=== PATIENT | male | born 1950 | race Caucasian/White ===

== ENCOUNTER 2018-05-29 08:44 | Inpatient (IN) | payer MEDICARE, OTHER ==
--- NOTE | 2018-05-29 09:30 | EDM.PDOC ---
ED HPI GENERAL MEDICAL PROBLEM - General Chief Complaint: General Stated Complaint: WEAK Time Seen by Provider: 05/29/18 09:10 Source of Information: Reports: Patient, EMS History Limitations: Reports: No Limitations - History of Present Illness INITIAL COMMENTS - FREE TEXT/NARRATIVE: 60-year-old male brought in by ambulance because of significant worsening weakness. He started physical therapy last week and after 2 sessions became much worse. He has had back surgery which relieved back pain, but since he has intermittent left-sided hip and knee pain. Weakness has not been an issue until the last 7 days. Twice he has fallen at home, he is unable to get up and has to call for help including the neighbors just to get up. His appetite has been down but he denies any fevers, chills, chest pain, abdominal pain, diarrhea, dark stools or medication changes. He is not falling because of dizziness or being lightheaded, he is falling because his leg is giving out. He is also concerned that over the past week he has developed lower extremity edema, particularly the left leg which he has not had in the past. According to EMS they are working him up for "possible MS". Onset: Gradual Duration: Day(s): (Much worse over the last 7 days) Location: Reports: Generalized Severity: Moderate Worsens with: Reports: Other (Recent physical therapy seems to have made his weakness worse) Associated Symptoms: Reports: Loss of Appetite, Malaise, Weakness. Denies: Confusion, Chest Pain, Cough, Fever/Chills, Nausea/Vomiting, Shortness of Breath Left Middle Chest Pain Score (Numeric/FACES): 4 - Related Data Allergies Allergy/AdvReac Type Severity Reaction Status Date / Time Penicillins Allergy unsure Verified 04/14/16 10:39 Home Meds: Home Meds Doxazosin [Cardura] 8 mg PO DAILY 09/19/14 [History] Triamterene/Hydrochlorothiazid [Triamterene-HCTZ 37.5-25 MG] 25 - 37.5 mg PO DAILY 09/19/14 [History] amLODIPine Besylate/Benazepril [Amlodipine-Benazepril 10-20 MG] 10 - 20 mg PO DAILY 09/19/14 [History] Cyclobenzaprine [Flexeril] 10 mg PO TID PRN 10/02/14 [History] Ibuprofen 800 mg PO ASDIRECTED PRN 10/02/14 [History] Aspirin [Eric Chewable Aspirin] 81 mg PO DAILY 06/30/15 [History] Naproxen Sodium [Aleve] 220 mg PO BID PRN 04/14/16 [History] Diazepam [Valium] 5 mg PO ASDIRECTED PRN 05/29/18 [History] Metoprolol Succinate 100 mg PO DAILY 05/29/18 [History] Nortriptyline 25 mg PO DAILY 05/29/18 [History] Solifenacin Succinate [Vesicare] 10 mg PO DAILY 05/29/18 [History] Past Medical History Cardiovascular History: Reports: Hypertension Genitourinary History: Reports: BPH Neurological History: Reports: MS - Infectious Disease History Infectious Disease History: Reports: Chicken Pox, Measles, Mumps - Past Surgical History GI Surgical History: Reports: Hernia, Inguinal Male Surgical History: Reports: TURP-Transurethral Resection of Prostate Musculoskeletal Surgical History: Reports: Other (See Below) Other Musculoskeletal Surgeries/Procedures:: back surgery Social & Family History - Tobacco Use Smoking Status *Q: Never Smoker - Caffeine Use Caffeine Use: Reports: Coffee - Recreational Drug Use Recreational Drug Use: No ED ROS GENERAL - Review of Systems Review Of Systems: See Below Constitutional: Reports: Malaise, Weakness, Decreased Appetite, Other (Despite not complaining of shortness of breath, the patient arrived with an O2 saturation of 86% on room air which responded well to nasal cannula oxygen). Denies: Fever, Chills HEENT: Reports: No Symptoms Respiratory: Denies: Shortness of Breath, Cough Cardiovascular: Denies: Chest Pain, Palpitations Endocrine: Reports: Fatigue GI/Abdominal: Denies: Abdominal Pain, Nausea, Vomiting : Reports: No Symptoms Musculoskeletal: Reports: Other (Intermittent left hip and left knee pain) Skin: Denies: Cyanosis, Pallor, Bruising Neurological: Reports: Weakness. Denies: Dizziness, Headache Psychiatric: Reports: No Symptoms ED EXAM, GENERAL - Physical Exam Exam: See Below Exam Limited By: No Limitations General Appearance: Alert, No Apparent Distress, Other (When I went in to examine the patient O2 saturations were improved with nasal cannula, his color was good) Eye Exam: Bilateral Eye: EOMI Throat/Mouth: Normal Inspection Head: Atraumatic Neck: Normal Inspection, Supple Respiratory/Chest: No Respiratory Distress, Lungs Clear, Decreased Breath Sounds (Right base sounds are decreased compared to left) Cardiovascular: Regular Rate, Rhythm. No: Extra Beats GI/Abdominal: Normal Bowel Sounds, Soft, Non-Tender Back Exam: No: CVA Tenderness (R), CVA Tenderness (L) Extremities: Pedal Edema (Patient has lower extremity edema, trace in the right extremity and 1+ in the left) Neurological: Alert, Oriented, Other (He has no asymmetric weakness, however diffuse weakness as prominent as he is unable to maintain a sitting position) Psychiatric: Normal Affect, Normal Mood Skin Exam: Warm, Dry Course - Vital Signs Last Recorded V/S: Last Vital Signs Temp 100.1 F 05/29/18 20:44 Pulse 76 05/29/18 20:44 Resp 18 05/29/18 20:44 BP 146/74 H 05/29/18 20:44 Pulse Ox 91 L 05/29/18 20:44 - Orders/Labs/Meds Labs: Laboratory Tests 05/29/18 05/29/18 05/29/18 Range/Units 09:14 09:18 09:18 WBC 11.1 H (4.5-11.0) K/uL RBC 4.52 (4.30-5.90) M/uL Hgb 13.2 (12.0-15.0) g/dL Hct 39.3 L (40.0-54.0) % MCV 87 (80-98) fL MCH 29 (27-31) pg MCHC 34 (32-36) % Plt Count 207 (150-400) K/uL Neut % (Auto) 78 H (36-66) % Lymph % (Auto) 10 L (24-44) % [place] % (Auto) 10 H (2-6) % Eos % (Auto) 1 L (2-4) % Baso % (Auto) 0 (0-1) % ESR (0-20) mm/hr PT (9.5-12.0) sec INR (0.80-1.20) APTT (27.0-36.0) sec D-Dimer, Quantitative 2030 H (0.0-400.0) ng/mL Sodium 142 (140-148) mmol/L Potassium 2.7 L* (3.6-5.2) mmol/L Chloride 100 (100-108) mmol/L Carbon Dioxide 33 H (21-32) mmol/L Anion Gap 11.7 (5.0-14.0) mmol/L BUN 17 (7-18) mg/dL Creatinine 1.4 H (0.8-1.3) mg/dL Est Cr Clr Drug Dosing 52.14 mL/min Estimated GFR (MDRD) 50 L (>60) Glucose 118 H (74-106) mg/dL Calcium 8.1 L (8.5-10.1) mg/dL Total Bilirubin 1.1 H (0.2-1.0) mg/dL AST 13 L (15-37) U/L ALT 16 (12-78) U/L Alkaline Phosphatase 80 (46-116) U/L Troponin I < 0.017 (0.000-0.056) ng/mL C-Reactive Protein (0.0-0.3) mg/dL Total Protein 6.3 L (6.4-8.2) g/dL Albumin 3.0 L (3.4-5.0) g/dL Globulin 3.3 (2.3-3.5) g/dL Albumin/Globulin Ratio 0.9 L (1.2-2.2) TSH, Ultra Sensitive 1.990 (0.358-3.740) uIU/mL 05/29/18 05/29/18 05/29/18 Range/Units 09:19 09:19 09:19 WBC (4.5-11.0) K/uL RBC (4.30-5.90) M/uL Hgb (12.0-15.0) g/dL Hct (40.0-54.0) % MCV (80-98) fL MCH (27-31) pg MCHC (32-36) % Plt Count (150-400) K/uL Neut % (Auto) (36-66) % Lymph % (Auto) (24-44) % [place] % (Auto) (2-6) % Eos % (Auto) (2-4) % Baso % (Auto) (0-1) % ESR 20 (0-20) mm/hr PT (9.5-12.0) sec INR (0.80-1.20) APTT 34.1 (27.0-36.0) sec D-Dimer, Quantitative (0.0-400.0) ng/mL Sodium (140-148) mmol/L Potassium (3.6-5.2) mmol/L Chloride (100-108) mmol/L Carbon Dioxide (21-32) mmol/L Anion Gap (5.0-14.0) mmol/L BUN (7-18) mg/dL Creatinine (0.8-1.3) mg/dL Est Cr Clr Drug Dosing mL/min Estimated GFR (MDRD) (>60) Glucose (74-106) mg/dL Calcium (8.5-10.1) mg/dL Total Bilirubin (0.2-1.0) mg/dL AST (15-37) U/L ALT (12-78) U/L Alkaline Phosphatase (46-116) U/L Troponin I (0.000-0.056) ng/mL C-Reactive Protein 13.78 H (0.0-0.3) mg/dL Total Protein (6.4-8.2) g/dL Albumin (3.4-5.0) g/dL Globulin (2.3-3.5) g/dL Albumin/Globulin Ratio (1.2-2.2) TSH, Ultra Sensitive (0.358-3.740) uIU/mL 05/29/18 Range/Units 09:19 WBC (4.5-11.0) K/uL RBC (4.30-5.90) M/uL Hgb (12.0-15.0) g/dL Hct (40.0-54.0) % MCV (80-98) fL MCH (27-31) pg MCHC (32-36) % Plt Count (150-400) K/uL Neut % (Auto) (36-66) % Lymph % (Auto) (24-44) % [place] % (Auto) (2-6) % Eos % (Auto) (2-4) % Baso % (Auto) (0-1) % ESR (0-20) mm/hr PT 11.0 (9.5-12.0) sec INR 1.00 (0.80-1.20) APTT (27.0-36.0) sec D-Dimer, Quantitative (0.0-400.0) ng/mL Sodium (140-148) mmol/L Potassium (3.6-5.2) mmol/L Chloride (100-108) mmol/L Carbon Dioxide (21-32) mmol/L Anion Gap (5.0-14.0) mmol/L BUN (7-18) mg/dL Creatinine (0.8-1.3) mg/dL Est Cr Clr Drug Dosing mL/min Estimated GFR (MDRD) (>60) Glucose (74-106) mg/dL Calcium (8.5-10.1) mg/dL Total Bilirubin (0.2-1.0) mg/dL AST (15-37) U/L ALT (12-78) U/L Alkaline Phosphatase (46-116) U/L Troponin I (0.000-0.056) ng/mL C-Reactive Protein (0.0-0.3) mg/dL Total Protein (6.4-8.2) g/dL Albumin (3.4-5.0) g/dL Globulin (2.3-3.5) g/dL Albumin/Globulin Ratio (1.2-2.2) TSH, Ultra Sensitive (0.358-3.740) uIU/mL Meds: Medications Discontinued Medications Generic Name Dose Route Start Last Admin Trade Name Freq PRN Reason Stop Dose Admin Acetaminophen 650 mg 05/29/18 17:25 Tylenol PO Q4H PRN Pain (Mild 1-3)/fever Amlodipine Besylate 10 mg 05/30/18 09:00 Norvasc PO DAILY [facility] Aspirin 81 mg 05/30/18 09:00 Halfprin PO DAILY [facility] Benazepril HCl 20 mg 05/30/18 09:00 Lotensin PO DAILY [facility] Doxazosin Mesylate 8 mg 05/30/18 09:00 Cardura PO DAILY [facility] Enoxaparin Sodium 40 mg 05/29/18 17:25 05/29/18 18:14 Lovenox SUBCUT 40 mg DAILY [facility] Administration Heparin Sodium (Porcine) Confirm 05/29/18 20:33 05/29/18 20:36 Heparin Sodium Administered 05/29/18 20:34 5,000 units Dose Administration 5,000 units .ROUTE .STK-MED ONE Heparin Sodium (Porcine) 5,000 units 05/29/18 21:07 05/29/18 22:02 Heparin Sodium IVPUSH 05/29/18 21:08 Not Given .BOLUS ONE Potassium Chloride 20 meq/ 112 mls @ 56 mls/hr 05/29/18 11:30 05/29/18 11:54 Lidocaine HCl 2 ml/ Sodium IV 05/29/18 13:29 56 mls/hr Chloride ONETIME ONE Administration Potassium Chloride 40 meq/ 100 mls @ 25 mls/hr 05/29/18 17:25 05/29/18 18:16 Premix IV 05/29/18 21:24 Not Given ONETIME ONE Sodium Chloride 1,000 mls @ 125 mls/hr 05/29/18 17:25 Normal Saline IV ASDIRECTED SHILO Sodium Chloride 100 mls @ 4 mls/sec 05/29/18 18:00 05/29/18 19:56 Normal Saline IV 4 mls/sec ASDIRECTED SHILO Administration 20/ Premix 0 mls @ 50 mls/hr 05/29/18 18:01 05/29/18 22:02 IV 05/29/18 20:02 Not Given Q2H SHILO Potassium Chloride Confirm 05/29/18 18:21 05/29/18 19:10 Kcl 20 Meq In Water 100 Ml Administered 05/29/18 18:22 50 mls/hr Dose Administration 100 mls @ as directed .ROUTE .STK-MED ONE Heparin Sodium/Dextrose 25,000 units in 500 mls @ 26 mls/hr 05/29/18 19:30 20:39 Heparin 25,000 Units In D5w 500 Ml IV 26 mls/hr TITRATE SHILO 26 mls/hr Administration Protocol Potassium Chloride Confirm 05/29/18 21:35 05/29/18 21:39 Kcl 20 Meq In Water 100 Ml Administered 05/29/18 21:36 50 mls/hr Dose Administration 100 mls @ as directed .ROUTE .STK-MED ONE Iopamidol 100 ml 05/29/18 18:00 Isovue-370 (76%) IV . DIRECTED SHILO Iopamidol 100 ml 05/29/18 19:00 05/29/18 19:57 Isovue-370 (76%) IV 05/29/18 19:01 100 ml ONETIME ONE Administration Lidocaine HCl 2 ml 05/29/18 18:03 05/29/18 19:05 Xylocaine-Mpf 1% INJECT 05/29/18 18:04 2 ml ONETIME ONE Administration Magnesium Hydroxide 30 ml 05/29/18 17:25 Milk Of Magnesia PO Q12H PRN Constipation Metoprolol Succinate 100 mg 05/30/18 09:00 Toprol Xl PO DAILY [facility] Non-Formulary Medication 10 - 20 mg 05/30/18 09:00 Amlodipine Besylate/Benazepril [Amlodipine-Benazepril 10-20 Mg] PO DAILY [facility] Nortriptyline HCl 25 mg 05/30/18 09:00 Nortriptyline PO DAILY [facility] Ondansetron HCl 4 mg 05/29/18 17:25 Zofran IV Q4H PRN Nausea/Vomiting Polyethylene Glycol 17 gm 05/29/18 17:25 Miralax PO DAILY PRN Constipation Potassium Chloride 40 meq 05/29/18 17:25 05/29/18 18:14 Klor-Con M20 PO 05/29/18 17:26 40 meq ONETIME ONE Administration Senna/Docusate Sodium 1 tab 05/29/18 17:25 Senna Plus PO BID PRN Constipation Sodium Chloride 10 ml 05/29/18 17:25 Saline Flush FLUSH ASDIRECTED PRN Keep Vein Open Triamterene/HCTZ 1 each 05/30/18 09:00 Maxzide 25-37.5 Mg PO DAILY [facility] Trospium 20 mg 05/30/18 09:00 Sanctura PO BID SHILO - Re-Assessments/Exams Free Text/Narrative Re-Assessment/Exam: 05/29/18 09:31 Two-view chest x-ray will be obtained because of the hypoxia and decreased breath sounds on the right, CMP and CBC and troponin also drawn. Causes of weakness could be hypercapnia, electrolyte disturbance or thyroid function, TSH was also added. 05/29/18 09:41 Two-view chest x-ray shows a very high right hemidiaphragm, but this has been present on previous x-rays 05/29/18 10:30 Labs returned with some abnormalities, troponin was negative and TSH was normal. Hemoglobin and white count were noncontributory, he is not anemic. Calcium was low at 8.1, potassium was significantly low at 2.7. Patient was given his usual morning medications but he was so weak that he could not stand for the x-ray and it was difficult to get him back in bed and he got back to the room. I think he'll need inpatient treatment of hypokalemia and profound weakness and may need some more evaluation. Departure - Departure Time of Disposition: 15:13 Disposition: Admitted As Inpatient 66 Condition: Fair Clinical Impression: Hypokalemia, Generalized weakness, Recurrent falls - Discharge Information
--- NOTE | 2018-05-29 09:43 | CR ---
CHEST: AP and lateral sitting CLINICAL HISTORY:Dyspnea COMPARISON:2009 FINDINGS: There is elevation of the right hemidiaphragm. This is chronic. Heart size and pulmonary v ascularity are normal. Lung de [place] are clear. IMPRESSION: Elevation right hemidiaphragm is chronic No acute cardiopulmonary process
[2018-05-29] MEDS ORDERED: Potassium Chloride 20 MEQ in Premix Bag 1 BAG IV ONE (11:21)
[2018-05-29] MEDS ORDERED: Potassium Chloride 20 MEQ, Lidocaine 1% 2 ML in Sodium Chloride 0.9% 100 ML IV ONE (11:30)
--- NOTE | 2018-05-29 17:02 | PCM.HP ---
H&P History of Present Illness - General Date of Service: 05/29/18 Admit Problem/Dx: Admission Diagnosis/Problem Admission Diagnosis/Problem Hypokalemia Source of Information: Patient, Family, Provider, RN Notes Reviewed History Limitations: Reports: No Limitations - History of Present Illness Initial Comments - Free Text/Narative: Mr. Gordon is a 68-year-old gentleman who is admitted through the emergency department with new weakness of both lower extremities as well as lower trunk muscles. He has had ongoing difficulty with some weakness in his left leg as well as pain in his left hip and knee. He experienced a traumatic injury to his back 70 years ago and has undergone 2 spinal surgeries, the most recent of which was 2 months ago. Initially after the surgery was doing fairly well but now especially over the last week has lost significant strength and has had 6 falls during that period of time. He typically is able to get out of bed and out of a chair independently, as well as ambulate with use of a cane or walker. He is now very limited in his movement because of weakness it is really even unable to rollover in bed and certainly unable to sit independently or ambulate. He has been evaluated in the emergency department, there is no significant evidence of underlying infection causing current weakness. He also is had a history of MS versus other neurologic autoimmune process and is being followed by a neurologist in the [facility]. He denies any other neurologic symptoms specifically no sensory changes, cranial nerve changes or upper extremity weakness. Left Middle Chest Pain Score (Numeric/FACES): 4 - Related Data Allergies/Adverse Reactions: Allergies Allergy/AdvReac Type Severity Reaction Status Date / Time Penicillins Allergy unsure Verified 04/14/16 10:39 Home Medications: Home Meds Doxazosin [Doxazosin Mesylate] 8 mg PO DAILY 09/19/14 [History] Triamterene/Hydrochlorothiazid [Triamterene-HCTZ 37.5-25 MG] 25 - 37.5 mg PO DAILY 09/19/14 [History] amLODIPine Besylate/Benazepril [Amlodipine-Benazepril 10-20 MG] 10 - 20 mg PO DAILY 09/19/14 [History] Cyclobenzaprine [Flexeril] 10 mg PO TID PRN 10/02/14 [History] Ibuprofen 800 mg PO ASDIRECTED PRN 10/02/14 [History] Aspirin [Eric Chewable Aspirin] 81 mg PO DAILY 06/30/15 [History] Naproxen Sodium [Aleve] 220 mg PO BID PRN 04/14/16 [History] Diazepam [Valium] 5 mg PO ASDIRECTED PRN 05/29/18 [History] Metoprolol Succinate 100 mg PO DAILY 05/29/18 [History] Nortriptyline 25 mg PO DAILY 05/29/18 [History] Solifenacin Succinate [Vesicare] 10 mg PO DAILY 05/29/18 [History] Past Medical History Cardiovascular History: Reports: Hypertension Genitourinary History: Reports: BPH Neurological History: Reports: MS - Infectious Disease History Infectious Disease History: Reports: Chicken Pox, Measles, Mumps - Past Surgical History GI Surgical History: Reports: Hernia, Inguinal Male Surgical History: Reports: TURP-Transurethral Resection of Prostate Musculoskeletal Surgical History: Reports: Other (See Below) Other Musculoskeletal Surgeries/Procedures:: back surgery Social & Family History - Tobacco Use Smoking Status *Q: Former Smoker Years of Tobacco use: 10 Packs/Tins Daily: 0.5 Used Tobacco, but Quit: Yes Month/Year Tobacco Last Used: 1984 - Caffeine Use Caffeine Use: Reports: None - Recreational Drug Use Recreational Drug Use: No H&P Review of Systems - Review of Systems: Review Of Systems: See Below General: Reports: Weakness. Denies: Fever, Chills, Diaphoresis, Decreased Appetite HEENT: Reports: No Symptoms Pulmonary: Reports: No Symptoms Cardiovascular: Reports: No Symptoms Gastrointestinal: Reports: No Symptoms Genitourinary: Reports: Incontinence (Chronic). Denies: Dysuria, Frequency, Burning, Pain Musculoskeletal: Reports: No Symptoms Skin: Reports: No Symptoms Psychiatric: Reports: No Symptoms Neurological: Reports: Difficulty Walking, Weakness Hematologic/Lymphatic: Reports: No Symptoms Immunologic: Reports: No Symptoms Exam - Exam Exam: See Below - Vital Signs Vital Signs: Last Vital Signs Temp 99.6 F 05/29/18 15:35 Pulse 96 05/29/18 15:35 Resp 18 05/29/18 15:35 BP 149/66 H 05/29/18 15:35 Pulse Ox 93 L 05/29/18 15:35 Weight: 245 lb - Exam Quality Assessment: Supplemental Oxygen, DVT Prophylaxis General: Alert, Oriented, Cooperative HEENT: Conjunctiva Clear, Hearing Intact, Mucosa Moist & [place], Normal Nasal Septum, Posterior Pharynx Clear, Pupils Equal Neck: Supple, Trachea Midline, +2 Carotid Pulse wo Bruit Lungs: Clear to Auscultation, Normal Respiratory Effort Cardiovascular: Regular Rate, Regular Rhythm, Normal S1, Normal S2. No: Systolic Murmur, Diastolic Murmur GI/Abdominal Exam: Soft, Non-Tender, No Organomegaly, No Distention Extremities: Non-Tender, Pedal Edema (Left leg) Skin: Warm, Dry, Intact Neuro Extensive - Motor, Sensory, Reflexes: CN II-XII Intact, Motor/Sensory Deficits (Severe motor weakness left leg greater than right and severe weakness lower back and abdomen). No: Abnormal Sensation - Patient Data Lab Results Last 24 hrs: Laboratory Results - last 24 hr 05/29/18 05/29/18 05/29/18 Range/Units 09:14 09:18 09:18 WBC 11.1 H (4.5-11.0) K/uL RBC 4.52 (4.30-5.90) M/uL Hgb 13.2 (12.0-15.0) g/dL Hct 39.3 L (40.0-54.0) % MCV 87 (80-98) fL MCH 29 (27-31) pg MCHC 34 (32-36) % Plt Count 207 (150-400) K/uL Neut % (Auto) 78 H (36-66) % Lymph % (Auto) 10 L (24-44) % [place] % (Auto) 10 H (2-6) % Eos % (Auto) 1 L (2-4) % Baso % (Auto) 0 (0-1) % D-Dimer, Quantitative 2030 H (0.0-400.0) ng/mL Sodium 142 (140-148) mmol/L Potassium 2.7 L* (3.6-5.2) mmol/L Chloride 100 (100-108) mmol/L Carbon Dioxide 33 H (21-32) mmol/L Anion Gap 11.7 (5.0-14.0) mmol/L BUN 17 (7-18) mg/dL Creatinine 1.4 H (0.8-1.3) mg/dL Est Cr Clr Drug Dosing 52.14 mL/min Estimated GFR (MDRD) 50 L (>60) Glucose 118 H (74-106) mg/dL Calcium 8.1 L (8.5-10.1) mg/dL Total Bilirubin 1.1 H (0.2-1.0) mg/dL AST 13 L (15-37) U/L ALT 16 (12-78) U/L Alkaline Phosphatase 80 (46-116) U/L Troponin I < 0.017 (0.000-0.056) ng/mL Total Protein 6.3 L (6.4-8.2) g/dL Albumin 3.0 L (3.4-5.0) g/dL Globulin 3.3 (2.3-3.5) g/dL Albumin/Globulin Ratio 0.9 L (1.2-2.2) TSH, Ultra Sensitive 1.990 (0.358-3.740) uIU/mL Result Diagrams: 05/29/18 09:18 05/29/18 09:18 *Q Meaningful Use (ADM) - VTE Risk Assess *Q Each Risk Factor Represents 1 Point: Obesity ( BMI > 25 kg/m2) Total Score 1 Point Risk Factors: 1 Each Risk Factor Represents 2 Points: Age 60 - 74 Years, Patient confined to bed greater than 72 hours Total Score 2 Point Risk Factors: 4 Each Risk Factor Represents 3 Points: None Total Score 3 Point Risk Factors: 0 Each Risk Factor Represents 5 Points: None Total Score 5 Point Risk Factors: 0 Venous Thromboembolism Risk Factor Score *Q: 5 Problem List Initiated/Reviewed/Updated: Yes Orders Last 24hrs: Active Orders 24 hr Category Date Time Status Patient Status Manage Transfer [TRANSFER] Routine ADT 05/29/18 16:46 Ordered Patient Status [ADT] Routine ADT 05/29/18 13:58 Active Resuscitation Status Routine Resus Stat 05/29/18 16:56 Ordered Assessment/Plan Comment:: ASSESSMENT AND PLAN NEW WEAKNESS BOTH LOWER EXTREMITIES AND LOWER TRUNK-history of previous and recent spinal surgery as well as 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 -Review with patient's neurologist, Dr. Reaves -Will likely require further imaging and possible transfer for subspecialty evaluation [id number] obtained in the emergency department elevated. Unilateral edema of the left lower extremity which has developed in the past week. Hypoxic on initial presentation to the emergency department, improved with supplemental oxygen via nasal cannula. Chest x-ray obtained in the emergency department shows no obvious abnormalities. -Venous Doppler study left lower extremity -CT scan angiogram of the chest -Supplemental oxygen as needed HYPOKALEMIA-likely secondary to diuretic therapy -IV and oral potassium replacement -Follow-up potassium level in a.m. HYPERTENSION -Continue outpatient antihypertensive therapy MAINTENANCE ISSUES -DVT prophylaxis; Lovenox 40 mg subcutaneous daily -GI prophylaxis;Not indicated -Maher catheter;Not indicated -Nutrition;Regular diet -Nicotine dependence;Not required CODE STATUS-FULL CODE ADMISSION STATUS-patient will be admitted to inpatient status, expect at least a 2 night hospital stay for evaluation and management of problems as outlined above. At the time of this admission I do not reasonably expected evaluation and management of this problem will require more than a 96 hour hospital stay. DISPOSITION-anticipate discharge to home after the hospital stay. PRIMARY CARE PROVIDER-
[2018-05-29] MEDS ORDERED: Enoxaparin 40 MG/0.4 ML Syringe SUBCUT SCH (17:25)
[2018-05-29] MEDS ORDERED: Ondansetron 4 MG/2 ML SDV IV PRN (17:25)
[2018-05-29] MEDS ORDERED: Sodium Chloride 0.9% 10 ML Syringe FLUSH PRN (17:25)
[2018-05-29] MEDS ORDERED: Acetaminophen 325 MG Tab PO PRN (17:25)
[2018-05-29] MEDS ORDERED: Magnesium Hydroxide 400 MG/5 ML Susp 30 ML Cup PO PRN (17:25)
[2018-05-29] MEDS: Potassium Chloride 20 MEQ Tab.ER PO ONE ×2 (17:25→18:14)
[2018-05-29] MEDS ORDERED: Potassium Chloride 40 MEQ in Premix Bag 1 BAG IV ONE (17:25)
[2018-05-29] MEDS ORDERED: Polyethylene Glycol 3350 Powder 17 GM Packet PO PRN (17:25)
[2018-05-29] MEDS ORDERED: Sodium Chloride 0.9% 1,000 ML IV SCH (17:25)
[2018-05-29] MEDS ORDERED: Iopamidol 755 Mg/ML 100 ML Bottle IV SCH (18:00)
[2018-05-29] MEDS ORDERED: Sodium Chloride 0.9% 100 ML IV SCH (18:00)
[2018-05-29] MEDS ORDERED: Iopamidol 755 Mg/ML 100 ML Bottle IV ONE (19:00)
[2018-05-29] MEDS: Potassium Chloride 100 ML ONE ×2 (19:06→19:10)
[2018-05-29] MEDS ORDERED: Heparin Sodium/D5W 25,000 UNITS/500 ML BAG IV SCH (19:30)
--- NOTE | 2018-05-29 20:00 | PCM.DCSUM1 ---
Discharge Summary - Hospital Course Brief History: This patient is a 68-year-old gentleman who was admitted through the emergency room with hypokalemia and rapidly progressive weakness of both lower extremities as well as lower trunk muscles. - Discharge Data Discharge Date: 05/29/18 Discharge Disposition: DC/Tfer to Acute Hospital 02 Condition: Poor - Discharge Diagnosis/Problem(s) (1) Deep vein thrombosis SNOMED Code(s): 658175030 ICD Code: I82.409 - ACUTE EMBOLISM AND THOMBOS UNSP DEEP VN UNSP LOWER EXTREMITY Status: Acute Current Visit: Yes (2) Muscle weakness of proximal extremity SNOMED Code(s): 541309072 ICD Code: M62.89 - OTHER SPECIFIED DISORDERS OF MUSCLE Status: Acute Current Visit: Yes (3) Hypokalemia SNOMED Code(s): 22805248 ICD Code: E87.6 - HYPOKALEMIA Status: Acute Current Visit: Yes (4) Recurrent falls SNOMED Code(s): 509362672 ICD Code: R29.6 - REPEATED FALLS Status: Acute Current Visit: Yes - Patient Summary/Data Hospital Course: Mr. Gordon is a 68-year-old gentleman who is admitted through the emergency department with new weakness of both lower extremities as well as lower trunk muscles. He has had ongoing difficulty with some weakness in his left leg as well as pain in his left hip and knee. He experienced a traumatic injury to his back 70 years ago and has undergone 2 spinal surgeries, the most recent of which was 2 months ago. Initially after the surgery was doing fairly well but now especially over the last week has lost significant strength and has had 6 falls during that period of time. He typically is able to get out of bed and out of a chair independently, as well as ambulate with use of a cane or walker. He is now very limited in his movement because of weakness it is really even unable to rollover in bed and certainly unable to sit independently or ambulate. He has long-standing urinary incontinence related to previous surgery and denies any bowel incontinence. He has been evaluated in the emergency department, there is no significant evidence of underlying infection causing current weakness. He also is had a history of MS versus other neurologic autoimmune process and is being followed by a neurologist in the [facility]. He denies any other neurologic symptoms specifically no sensory changes, cranial nerve changes or upper extremity weakness. After admission I was able to contact his neurologist, Dr. Sosa in [place]. After review of the patient's symptoms and findings on exam he has recommended that the patient be transferred for further subspecialty evaluation and management. Because of unilateral edema of the left lower extremity venous Doppler study was obtained and showed extensive deep vein thrombosis involving the left leg. Patient was started on IV heparin bolus and continuous infusion per protocol. In the emergency department he was found to have hypokalemia with a potassium of 2.7. He did receive IV and oral potassium replacement prior to transfer. Also in the emergency department was noted to be mildly hypoxic with oxygen saturations in the mid 80s. Oxygenation improved significantly with 2 L of oxygen via nasal cannula. CT scan angiogram of the chest was obtained, the results of which are pending at the time of this dictation but will be faxed when available. Patient has been accepted in transfer by Dr. López at [facility] in [place], he will be transferred via [facility] ambulance. - Patient Instructions Diet: Usual Diet as Tolerated Activity: As Tolerated Other/Special Instructions: Patient will be transferred via [facility] ambulance to [facility] in [facility], or further subspecialty evaluation and management. - Discharge Plan *PRESCRIPTION DRUG MONITORING PROGRAM REVIEWED*: Not Applicable *COPY OF PRESCRIPTION DRUG MONITORING REPORT IN PATIENT VIOLETA: Not Applicable Home Medications: Home Meds Doxazosin [Doxazosin Mesylate] 8 mg PO DAILY 09/19/14 [History] Triamterene/Hydrochlorothiazid [Triamterene-HCTZ 37.5-25 MG] 25 - 37.5 mg PO DAILY 09/19/14 [History] amLODIPine Besylate/Benazepril [Amlodipine-Benazepril 10-20 MG] 10 - 20 mg PO DAILY 09/19/14 [History] Cyclobenzaprine [Flexeril] 10 mg PO TID PRN 10/02/14 [History] Ibuprofen 800 mg PO ASDIRECTED PRN 10/02/14 [History] Aspirin [Eric Chewable Aspirin] 81 mg PO DAILY 06/30/15 [History] Naproxen Sodium [Aleve] 220 mg PO BID PRN 04/14/16 [History] Diazepam [Valium] 5 mg PO ASDIRECTED PRN 05/29/18 [History] Metoprolol Succinate 100 mg PO DAILY 05/29/18 [History] Nortriptyline 25 mg PO DAILY 05/29/18 [History] Solifenacin Succinate [Vesicare] 10 mg PO DAILY 05/29/18 [History] - Discharge Summary/Plan Comment DC Time >30 min.: No - Patient Data Vitals - Most Recent: Last Vital Signs Temp 99.6 F 05/29/18 15:35 Pulse 96 05/29/18 15:35 Resp 18 05/29/18 15:35 BP 149/66 H 05/29/18 15:35 Pulse Ox 93 L 05/29/18 15:35 Weight - Most Recent: 245 lb I&O - Last 24 hours: Intake & Output 05/29/18 05/29/18 05/29/18 06:59 14:59 22:59 Intake Total 340 Balance 340 Lab Results - Last 24 hrs: Laboratory Results - last 24 hr 05/29/18 05/29/18 05/29/18 Range/Units 09:14 09:18 09:18 WBC 11.1 H (4.5-11.0) K/uL RBC 4.52 (4.30-5.90) M/uL Hgb 13.2 (12.0-15.0) g/dL Hct 39.3 L (40.0-54.0) % MCV 87 (80-98) fL MCH 29 (27-31) pg MCHC 34 (32-36) % Plt Count 207 (150-400) K/uL Neut % (Auto) 78 H (36-66) % Lymph % (Auto) 10 L (24-44) % [place] % (Auto) 10 H (2-6) % Eos % (Auto) 1 L (2-4) % Baso % (Auto) 0 (0-1) % ESR (0-20) mm/hr PT (9.5-12.0) sec INR (0.80-1.20) APTT (27.0-36.0) sec D-Dimer, Quantitative 2030 H (0.0-400.0) ng/mL Sodium 142 (140-148) mmol/L Potassium 2.7 L* (3.6-5.2) mmol/L Chloride 100 (100-108) mmol/L Carbon Dioxide 33 H (21-32) mmol/L Anion Gap 11.7 (5.0-14.0) mmol/L BUN 17 (7-18) mg/dL Creatinine 1.4 H (0.8-1.3) mg/dL Est Cr Clr Drug Dosing 52.14 mL/min Estimated GFR (MDRD) 50 L (>60) Glucose 118 H (74-106) mg/dL Calcium 8.1 L (8.5-10.1) mg/dL Total Bilirubin 1.1 H (0.2-1.0) mg/dL AST 13 L (15-37) U/L ALT 16 (12-78) U/L Alkaline Phosphatase 80 (46-116) U/L Troponin I < 0.017 (0.000-0.056) ng/mL C-Reactive Protein (0.0-0.3) mg/dL Total Protein 6.3 L (6.4-8.2) g/dL Albumin 3.0 L (3.4-5.0) g/dL Globulin 3.3 (2.3-3.5) g/dL Albumin/Globulin Ratio 0.9 L (1.2-2.2) TSH, Ultra Sensitive 1.990 (0.358-3.740) uIU/mL 05/29/18 05/29/18 05/29/18 Range/Units 09:19 09:19 09:19 WBC (4.5-11.0) K/uL RBC (4.30-5.90) M/uL Hgb (12.0-15.0) g/dL Hct (40.0-54.0) % MCV (80-98) fL MCH (27-31) pg MCHC (32-36) % Plt Count (150-400) K/uL Neut % (Auto) (36-66) % Lymph % (Auto) (24-44) % [place] % (Auto) (2-6) % Eos % (Auto) (2-4) % Baso % (Auto) (0-1) % ESR 20 (0-20) mm/hr PT (9.5-12.0) sec INR (0.80-1.20) APTT 34.1 (27.0-36.0) sec D-Dimer, Quantitative (0.0-400.0) ng/mL Sodium (140-148) mmol/L Potassium (3.6-5.2) mmol/L Chloride (100-108) mmol/L Carbon Dioxide (21-32) mmol/L Anion Gap (5.0-14.0) mmol/L BUN (7-18) mg/dL Creatinine (0.8-1.3) mg/dL Est Cr Clr Drug Dosing mL/min Estimated GFR (MDRD) (>60) Glucose (74-106) mg/dL Calcium (8.5-10.1) mg/dL Total Bilirubin (0.2-1.0) mg/dL AST (15-37) U/L ALT (12-78) U/L Alkaline Phosphatase (46-116) U/L Troponin I (0.000-0.056) ng/mL C-Reactive Protein 13.78 H (0.0-0.3) mg/dL Total Protein (6.4-8.2) g/dL Albumin (3.4-5.0) g/dL Globulin (2.3-3.5) g/dL Albumin/Globulin Ratio (1.2-2.2) TSH, Ultra Sensitive (0.358-3.740) uIU/mL 05/29/18 Range/Units 09:19 WBC (4.5-11.0) K/uL RBC (4.30-5.90) M/uL Hgb (12.0-15.0) g/dL Hct (40.0-54.0) % MCV (80-98) fL MCH (27-31) pg MCHC (32-36) % Plt Count (150-400) K/uL Neut % (Auto) (36-66) % Lymph % (Auto) (24-44) % [place] % (Auto) (2-6) % Eos % (Auto) (2-4) % Baso % (Auto) (0-1) % ESR (0-20) mm/hr PT 11.0 (9.5-12.0) sec INR 1.00 (0.80-1.20) APTT (27.0-36.0) sec D-Dimer, Quantitative (0.0-400.0) ng/mL Sodium (140-148) mmol/L Potassium (3.6-5.2) mmol/L Chloride (100-108) mmol/L Carbon Dioxide (21-32) mmol/L Anion Gap (5.0-14.0) mmol/L BUN (7-18) mg/dL Creatinine (0.8-1.3) mg/dL Est Cr Clr Drug Dosing mL/min Estimated GFR (MDRD) (>60) Glucose (74-106) mg/dL Calcium (8.5-10.1) mg/dL Total Bilirubin (0.2-1.0) mg/dL AST (15-37) U/L ALT (12-78) U/L Alkaline Phosphatase (46-116) U/L Troponin I (0.000-0.056) ng/mL C-Reactive Protein (0.0-0.3) mg/dL Total Protein (6.4-8.2) g/dL Albumin (3.4-5.0) g/dL Globulin (2.3-3.5) g/dL Albumin/Globulin Ratio (1.2-2.2) TSH, Ultra Sensitive (0.358-3.740) uIU/mL Med Orders - Current: Current Medications Acetaminophen (Tylenol) 650 mg PO Q4H PRN PRN Reason: Pain (Mild 1-3)/fever Amlodipine Besylate (Norvasc) 10 mg PO DAILY [facility] Aspirin (Halfprin) 81 mg PO DAILY [facility] Benazepril HCl (Lotensin) 20 mg PO DAILY [facility] Doxazosin Mesylate (Cardura) 8 mg PO DAILY [facility] Enoxaparin Sodium (Lovenox) 40 mg SUBCUT DAILY [facility] Last Admin: 05/29/18 18:14 Dose: 40 mg Sodium Chloride (Normal Saline) 1,000 mls @ 125 mls/hr IV ASDIRECTED SHILO Sodium Chloride (Normal Saline) 100 mls @ 4 mls/sec IV ASDIRECTED SHILO 20/ Premix 0 mls @ 50 mls/hr IV Q2H SHILO Stop: 05/29/18 20:02 Last Admin: 05/29/18 19:10 Dose: 50 mls/hr Heparin Sodium/Dextrose (Heparin 25,000 Units In D5w 500 Ml) 25,000 units in 500 mls @ 26 mls/hr IV TITRATE SHILO; Protocol Magnesium Hydroxide (Milk Of Magnesia) 30 ml PO Q12H PRN PRN Reason: Constipation Metoprolol Succinate (Toprol Xl) 100 mg PO DAILY SHILO Nortriptyline HCl (Nortriptyline) 25 mg PO DAILY [facility]O Ondansetron HCl (Zofran) 4 mg IV Q4H PRN PRN Reason: Nausea/Vomiting Polyethylene Glycol (Miralax) 17 gm PO DAILY PRN PRN Reason: Constipation Senna/Docusate Sodium (Senna Plus) 1 tab PO BID PRN PRN Reason: Constipation Sodium Chloride (Saline Flush) 10 ml FLUSH ASDIRECTED PRN PRN Reason: Keep Vein Open Triamterene/HCTZ (Maxzide 25-37.5 Mg) 1 each PO DAILY SHILO Trospium (Sanctura) 20 mg PO BID SHILO Discontinued Medications Potassium Chloride 20 meq/Lidocaine HCl 2 ml/ Sodium Chloride 112 mls @ 56 mls/ hr IV ONETIME ONE Stop: 05/29/18 13:29 Last Admin: 05/29/18 11:54 Dose: 56 mls/hr Potassium Chloride 40 meq/ (Premix) 100 mls @ 25 mls/hr IV ONETIME ONE Stop: 05/29/18 21:24 Last Admin: 05/29/18 18:16 Dose: Not Given Potassium Chloride (Kcl 20 Meq In Water 100 Ml) Confirm Administered Dose 100 mls @ as directed .ROUTE .STK-MED ONE Stop: 05/29/18 18:22 Last Admin: 05/29/18 19:10 Dose: 50 mls/hr Iopamidol (Isovue-370 (76%)) 100 ml IV . DIRECTED SHILO Iopamidol (Isovue-370 (76%)) 100 ml IV ONETIME ONE Stop: 05/29/18 19:01 Lidocaine HCl (Xylocaine-Mpf 1%) 2 ml INJECT ONETIME ONE Stop: 05/29/18 18:04 Last Admin: 05/29/18 19:05 Dose: 2 ml Non-Formulary Medication (Amlodipine Besylate/Benazepril [Amlodipine-Benazepril 10-20 Mg]) 10 - 20 mg PO DAILY SHILO Potassium Chloride (Klor-Con M20) 40 meq PO ONETIME ONE Stop: 05/29/18 17:26 Last Admin: 05/29/18 18:14 Dose: 40 meq - Exam Quality Assessment: Reports: Supplemental Oxygen General: Reports: Alert, Oriented, Cooperative Lungs: Reports: Clear to Auscultation, Normal Respiratory Effort Cardiovascular: Reports: Regular Rate, Regular Rhythm, No Murmurs GI/Abdominal Exam: Soft, Non-Tender, No Organomegaly, No Distention Extremities: Non-Tender, Pedal Edema (Left leg) Neurological: Reports: Normal Speech, Sensation Intact, Cranial Nerves Intact, Other (Severe proximal muscle weakness left leg, moderate proximal muscle weakness right leg, severe weakness lower trunk)
[2018-05-29] MEDS ORDERED: Heparin Sodium 5,000 Units/ML Vial ONE (20:33)
[2018-05-29 20:45] VITALS: BP 146/74
[2018-05-29] MEDS ORDERED: Heparin Sodium 5,000 Units/ML Vial IVPUSH ONE (21:07)
[2018-05-29] MEDS ORDERED: Potassium Chloride 100 ML ONE (21:35)
[2018-05-30] MEDS ORDERED: Hydrochlorothiazide/Triamterene 25-37.5 Tab PO SCH (09:00)
[2018-05-30] MEDS ORDERED: Metoprolol Succinate 50 MG Tab.ER PO SCH (09:00)
[2018-05-30] MEDS ORDERED: Trospium 20 MG Tab PO SCH (09:00)
[2018-05-30] MEDS ORDERED: Doxazosin 4 MG Tab PO SCH (09:00)
[2018-05-30] MEDS ORDERED: Aspirin 81 MG Tab.EC PO SCH (09:00)
[2018-05-30] MEDS ORDERED: Non-Formulary Medication 1 Each (Amlodipine Besylate/Benazepril [Amlodipine-Benazepril 10- PO SCH (09:00)
[2018-05-30] MEDS ORDERED: amLODIPine 10 MG Tab PO SCH (09:00)
[2018-05-30] MEDS ORDERED: Nortriptyline 25 MG Cap PO SCH (09:00)
[2018-05-30] MEDS: Potassium Chloride 100 ML ONE (15:50)
== END 2018-05-29 22:00 | DRG 641 ==
LOC: JP.ED 08:44 → JP.MS 13:58
PROVIDERS: ADMIT Hospitalist; ATTEND Hospitalist
DX: E87.6 Hypokalemia (principal); I82.402 Acute embolism and thrombosis of unspecified deep veins of left lower extremity; T50.2X5A Adverse effect of carbonic-anhydrase inhibitors, benzothiadiazides and other diuretics, initial encounter; R53.1 Weakness; I10 Essential (primary) hypertension; G35 Multiple sclerosis; R09.02 Hypoxemia; R32 Unspecified urinary incontinence; R29.6 Repeated falls; M25.562 Pain in left knee; R53.81 Other malaise; M25.552 Pain in left hip; N40.0 Benign prostatic hyperplasia without lower urinary tract symptoms; R60.0 Localized edema; R63.0 Anorexia; E66.9 Obesity, unspecified; R06.89 Other abnormalities of breathing; R06.02 Shortness of breath; Z68.35 Body mass index [BMI] 35.0-35.9, adult; Z88.0 Allergy status to penicillin; Z79.82 Long term (current) use of aspirin; Z79.899 Other long term (current) drug therapy; Z91.81 History of falling; Z87.891 Personal history of nicotine dependence
CPT/HCPCS: 36415; 71046 ×2; 80053; 84443; 84484; 85025; 85379; 85610; 85651; 85730; 86140; J3480; J7030; 71275; 93971-LT; A9270-GY; J1644; J1650; Q9967

== ENCOUNTER 2020-05-02 00:10 | Observation (INO) | payer MEDICARE, BC ==
--- NOTE | 2020-05-02 00:18 | EDM.PDOC ---
ED HPI GENERAL MEDICAL PROBLEM - General Chief Complaint: Lower Extremity Injury/Pain Stated Complaint: MEDICAL VIA [facility] Time Seen by Provider: 05/02/20 00:15 Source of Information: Reports: Patient, EMS, Old Records History Limitations: Reports: No Limitations - History of Present Illness INITIAL COMMENTS - FREE TEXT/NARRATIVE: 70 yo male with MS and chronic L hip and knee pain lost his balance and went to the floor without added injury. and son not able to get him up so called for EMS. shows up later and says she can't take her home. She believes [facility] is placing her later today in a long term care pharmacist care facility. Wants him to go from the ER to that facility. Onset: Unknown/Unsure Duration: Chronic, Getting Worse Location: Reports: Lower Extremity, Left Quality: Reports: Ache Severity: Moderate (with movement) Improves with: Reports: Rest Worsens with: Reports: Movement Context: Reports: Other (chronic) Associated Symptoms: Reports: No Other Symptoms Treatments [employer]: Reports: Other (see below) (none) Left Hip Pain Score (Numeric/FACES): 2 - Related Data Allergies Allergy/AdvReac Type Severity Reaction Status Date / Time Penicillins Allergy unsure Verified 05/02/20 00:13 Home Meds: Home Meds Doxazosin [Cardura] 8 mg PO DAILY 09/19/14 [History] Triamterene/Hydrochlorothiazid [Triamterene-HCTZ 37.5-25 MG] 25 - 37.5 mg PO DAILY 09/19/14 [History] amLODIPine Besylate/Benazepril [Amlodipine-Benazepril 10-20 MG] 10 - 20 mg PO DAILY 09/19/14 [History] Ibuprofen 800 mg PO ASDIRECTED PRN 10/02/14 [History] Solifenacin Succinate [Vesicare] 10 mg PO DAILY 05/29/18 [History] diazePAM [Valium] 5 mg PO ASDIRECTED PRN 05/29/18 [History] Apixaban [Eliquis] 5 mg PO BID 05/02/20 [History] Potassium Chloride [Klor-Con M20] 20 meq PO DAILY 05/02/20 [History] atenoloL [Atenolol] 100 mg PO DAILY 05/02/20 [History] Past Medical History Cardiovascular History: Reports: Hypertension Genitourinary History: Reports: BPH Neurological History: Reports: MS - Infectious Disease History Infectious Disease History: Reports: Chicken Pox, Measles, Mumps - Past Surgical History GI Surgical History: Reports: Hernia, Inguinal Male Surgical History: Reports: TURP-Transurethral Resection of Prostate Musculoskeletal Surgical History: Reports: Other (See Below) Other Musculoskeletal Surgeries/Procedures:: back surgery Social & Family History - Caffeine Use Caffeine Use: Reports: Coffee Review of Systems - Review of Systems Review Of Systems: See Below Constitutional: Reports: No Symptoms Musculoskeletal: Reports: Joint Pain (L knee and L hip) Skin: Reports: No Symptoms Neurological: Reports: No Symptoms ED EXAM, GENERAL - Physical Exam Exam: See Below Exam Limited By: No Limitations General Appearance: Alert, WD/WN, No Apparent Distress Extremities: Normal Inspection, Non-Tender (with palpation), Pedal Edema (trace LE edema), Limited Range of Motion (hip and knee on left due to pain). No: Normal Range of Motion, No Pedal Edema, Increased Warmth, Redness Neurological: Alert, Oriented, CN II-XII Intact, Normal Cognition, No Motor/Sensory Deficits Psychiatric: Normal Affect, Normal Mood Skin Exam: Warm, Dry, Intact, Normal Color, No Rash Course - Vital Signs Text/Narrative:: Anazeke Diamonder called @ 0151h Last Recorded V/S: Last Vital Signs Temp 36.7 C 05/02/20 00:14 Pulse 76 05/02/20 00:14 Resp 20 05/02/20 00:14 BP 141/69 H 05/02/20 00:14 Pulse Ox 95 05/02/20 00:14 - Orders/Labs/Meds Orders: Active Orders 24 hr Category Date Time Status Hip Min 2V or 3V Lt [CR] Stat Exams 05/02/20 00:17 Taken Knee 3V Lt [CR] Stat Exams 05/02/20 00:17 Taken Meds: Medications Discontinued Medications Generic Name Dose Route Start Last Admin Trade Name Freq PRN Reason Stop Dose Admin Oxycodone/Acetaminophen 1 tab 05/02/20 00:19 05/02/20 00:38 Percocet 325-5 Mg PO 05/02/20 00:20 1 tab ONETIME STA Administration - Radiology Interpretation Free Text/Narrative:: L hip and Knee X-rays-DJD only Departure - Departure Time of Disposition: 02:05 Disposition: Refer to Observation Condition: Fair Clinical Impression: Hip arthritis, Unable to stand up Degenerative arthritis Qualifiers: Osteoarthritis location: knee Osteoarthritis type: primary Laterality: left Q ualified Code(s): M17.12 - Unilateral primary osteoarthritis, left knee - Discharge Information *PRESCRIPTION DRUG MONITORING PROGRAM REVIEWED*: Not Applicable *COPY OF PRESCRIPTION DRUG MONITORING REPORT IN PATIENT VIOLETA: Not Applicable Instructions: Osteoarthritis Referrals: Spenser New MD [Primary Care Provider] - Forms: ED Department Discharge Sepsis Event Note (ED) - Focused Exam Vital Signs: Vital Signs Temp Pulse Resp BP Pulse Ox 05/02/20 00:14 36.7 C 76 20 141/69 H 95 - My Orders Last 24 Hours: My Active Orders 05/02/20 00:17 Hip Min 2V or 3V Lt [CR] Stat Knee 3V Lt [CR] Stat - Assessment/Plan Last 24 Hours: My Active Orders 05/02/20 00:17 Hip Min 2V or 3V Lt [CR] Stat Knee 3V Lt [CR] Stat
[2020-05-02] MEDS ORDERED: Acetaminophen/oxyCODONE 325-5 MG Tab PO STA (00:19)
--- NOTE | 2020-05-02 03:33 | PCM.HP.2 ---
H&P History of Present Illness - General Date of Service: 05/02/20 Admit Problem/Dx: Admission Diagnosis/Problem Admission Diagnosis/Problem Arthritis of both hips Source of Information: Patient, Provider, RN History Limitations: Reports: No Limitations - History of Present Illness Initial Comments - Free Text/Narative: CHIEF COMPLAINT: weakness ER Course 70 yo male with MS and chronic L hip and knee pain lost his balance and went to the floor without added injury. and son not able to get him up so called for EMS. shows up later and says she can't take her home. She believes [facility] is placing her later today in a nursing home care facility. Wants him to go from the ER to that facility. Onset of Symptoms: Reports: Gradual Duration of Symptoms: Reports: Chronic, Getting Worse Location: Reports: Generalized Severity: Severe (reports severe pain with any movement) Worsens with: Reports: Movement Context: Reports: Other (chronic progressive disease) Associated Symptoms: Reports: Weakness Left Hip Pain Score (Numeric/FACES): 2 - Related Data Allergies/Adverse Reactions: Allergies Allergy/AdvReac Type Severity Reaction Status Date / Time Penicillins Allergy unsure Verified 05/02/20 00:13 Home Medications: Home Meds Doxazosin [Cardura] 8 mg PO DAILY 09/19/14 [History] Triamterene/Hydrochlorothiazid [Triamterene-HCTZ 37.5-25 MG] 25 - 37.5 mg PO DAILY 09/19/14 [History] amLODIPine Besylate/Benazepril [Amlodipine-Benazepril 10-20 MG] 10 - 20 mg PO DA SHARRI 09/19/14 [History] Ibuprofen 800 mg PO ASDIRECTED PRN 10/02/14 [History] Solifenacin Succinate [Vesicare] 10 mg PO DAILY 05/29/18 [History] diazePAM [Valium] 5 mg PO ASDIRECTED PRN 05/29/18 [History] Apixaban [Eliquis] 5 mg PO BID 05/02/20 [History] Potassium Chloride [Klor-Con M20] 20 meq PO DAILY 05/02/20 [History] atenoloL [Atenolol] 100 mg PO DAILY 05/02/20 [History] Past Medical History Cardiovascular History: Reports: Hypertension Genitourinary History: Reports: BPH Neurological History: Reports: MS - Infectious Disease History Infectious Disease History: Reports: Chicken Pox, Measles, Mumps - Past Surgical History GI Surgical History: Reports: Hernia, Inguinal Male Surgical History: Reports: TURP-Transurethral Resection of Prostate Musculoskeletal Surgical History: Reports: Other (See Below) Other Musculoskeletal Surgeries/Procedures:: back surgery Social & Family History - Family History Family Medical History: Noncontributory - Tobacco Use Smoking Status *Q: Never Smoker - Caffeine Use Caffeine Use: Reports: Coffee - Recreational Drug Use Recreational Drug Use: No - Living Situation & Occupation Living situation: Reports: , with Family Occupation: Disabled (Lives with Liliane in [place], [place]. disable with Multiple Sclerosis. Has 35 years twin Sons and 4 Grandchildren.) H&P Review of Systems - Review of Systems: Review Of Systems: See Below General: Reports: Weakness, Fatigue HEENT: Reports: No Symptoms Pulmonary: Reports: No Symptoms Cardiovascular: Reports: Edema (lower legs and feet.) Gastrointestinal: Reports: No Symptoms Genitourinary: Reports: Incontinence (has indwelling urinary pump to assist with voiding) Musculoskeletal: Reports: Muscle Pain, Muscle Stiffness, Other (dx. Multiple Sclerosis since 2014) Skin: Reports: Dryness (lower legs and feet) Psychiatric: Reports: No Symptoms Neurological: Reports: Pre-Existing Deficit (Multiple Sclerosis) Hematologic/Lymphatic: Reports: Easy Bleeding (Eliquis for DVT), Easy Bruising (Eliquist for DVT) Immunologic: Reports: No Symptoms Exam - Exam Exam: See Below - Vital Signs Vital Signs: Last Vital Signs Temp 36.7 C 05/02/20 00:14 Pulse 76 05/02/20 00:14 Resp 20 05/02/20 00:14 BP 141/69 H 05/02/20 00:14 Pulse Ox 95 05/02/20 00:14 Weight: 111.13 kg - Exam Quality Assessment: DVT Prophylaxis General: Alert, Oriented, Cooperative, Other (pain with any movement. ) HEENT: PERRLA, Conjunctiva Clear, EOMI, Hearing Intact, Mucosa Moist & Council Neck: Supple, Trachea Midline Lungs: Clear to Auscultation, Normal Respiratory Effort Cardiovascular: Regular Rate, Regular Rhythm, Normal S1, Normal S2 GI/Abdominal Exam: Normal Bowel Sounds, Soft, Non-Tender, Other (obese) (Male) Exam: Deferred Rectal (Males) Exam: Deferred Extremities: Pedal Edema, Slow Capillary Refill Skin: Warm, Dry, Rash (lower legs and feet with dry scaley rash. ) Neurological: Normal Speech, Normal Tone Neuro Extensive - Mental Status: Alert, Oriented x3, Normal Mood/Affect, Normal Cognition, Memory Intact Neuro Extensive - Motor, Sensory, Reflexes: Motor/Sensory Deficits Psychiatric: Alert, Normal Affect, Normal Mood Sepsis Event Note - Evaluation Sepsis Screening Result: No Definite Risk - Focused Exam Vital Signs: Vital Signs Temp Pulse Resp BP Pulse Ox 05/02/20 00:14 36.7 C 76 20 141/69 H 95 Date Exam was Performed: 05/02/20 Time Exam was Performed: 03:57 - Problem List (1) Multiple sclerosis SNOMED Code(s): 34210143 ICD Code: G35 - MULTIPLE SCLEROSIS Status: Acute Priority: High Current Visit: Yes (2) Hip arthritis SNOMED Code(s): 50341635 ICD Code: M16.10 - UNILATERAL PRIMARY OSTEOARTHRITIS, UNSPECIFIED HIP Status: Acute Current Visit: Yes Problem List Initiated/Reviewed/Updated: Yes Orders Last 24hrs: Active Orders 24 hr Category Date Time Status Patient Status Manage Transfer [TRANSFER] Routine ADT 05/02/20 02:55 Ordered Hip Min 2V or 3V Lt [CR] Stat Exams 05/02/20 00:17 Taken Knee 3V Lt [CR] Stat Exams 05/02/20 00:17 Taken Resuscitation Status Routine Resus Stat 05/02/20 03:11 Ordered Assessment/Plan Comment:: ASSESSMENT AND PLAN: - History of Present Illness ER Course 70 yo male with MS and chronic L hip and knee pain lost his balance and went to the floor without added injury. and son not able to get him up so called for EMS. shows up later and says she can't take her home. She believes [facility] is placing her later today in a nursing home care facility. Wants him to go from the ER to that facility. Multiple Sclerosis causing weakness, limited ambulation due to pain and weakness in hips. Mr. Gordon is a pleasant man, intelligent, alert and give a good history of present care. Prior to his Multiple Sclerosis diagnosis he was a publicity consultant for [employer] - he had frequent overseas trips to [place], [place] and other countries. His twin Sons would travel with him and play of the golf course. Since being diagnosed with Multiple sclerosis in 2014, his life has been very limited, he can barely walk with his walker and uses a wheelchair for mobility. He reports he is bored with being at home for the past 5 years. He would like to go to Long Term with acute rehab to regain strength so he can be more active. -home medications ordered -medication order for pain control -consult to OT -consult to PT -consult to Case Management -Long Term placement for acute rehab -am labs CBC, CMP, AMYLASE, MAGNESIUM, URINE WITH MICRO, INR/PT HX DVT -lower leg -continue Eliquis -INR in am MAINTENANCE ISSUES -DVT Prophylaxis Eliquis 5mg po bid -GI prophylaxis- Protonix as above -Maher catheter contraindicated due to indwelling urinary pump -Nutrition regular diet CODE STATUS FULL ADMISSION This patient will be admitted to observation status, expect no more than one night hospital stay for evaluation and management of problems outline above. DISPOSITION anticipate discharge to Acute Rehab PRIMARY CARE PROVIDER Dr. New, [facility] HOSPITALIST Dr. Hardwick - Mortality Measure Prognosis:: Good
[2020-05-02] MEDS ORDERED: Diazepam 5 MG Tab PO PRN (03:49)
[2020-05-02] MEDS ORDERED: Sodium Chloride 0.9% 10 ML Syringe FLUSH PRN (03:49)
[2020-05-02] MEDS ORDERED: Albuterol 0.083% 2.5 MG/3 ML Neb Soln NEB PRN (03:49)
[2020-05-02] MEDS ORDERED: Acetaminophen/oxyCODONE 325-5 MG Tab PO PRN (03:49)
[2020-05-02] MEDS ORDERED: Morphine 2 MG/ML Syringe IVPUSH PRN (03:49)
[2020-05-02] MEDS ORDERED: Docusate Sodium 100 MG Cap PO PRN (03:49)
[2020-05-02] MEDS ORDERED: LORazepam 2 MG/ML SDV IV PRN (03:49)
[2020-05-02] MEDS ORDERED: Ondansetron 4 MG/2 ML SDV IV PRN (03:49)
[2020-05-02] MEDS ORDERED: Magnesium Hydroxide 400 MG/5 ML Susp 30 ML Cup PO PRN (03:49)
[2020-05-02] MEDS ORDERED: Ibuprofen 800 MG Tab PO PRN (03:49)
[2020-05-02] MEDS ORDERED: Ondansetron 4 MG Tab.DIS PO PRN (03:49)
[2020-05-02] MEDS ORDERED: Benazepril 10 MG Tab PO SCH (09:00)
[2020-05-02] MEDS ORDERED: Atenolol 25 MG Tab PO SCH (09:00)
[2020-05-02] MEDS ORDERED: Doxazosin 4 MG Tab PO SCH (09:00)
[2020-05-02] MEDS ORDERED: TRIAMTERENE PO SCH (09:00)
[2020-05-02] MEDS ORDERED: Trospium 20 MG Tab PO SCH (09:00)
[2020-05-02] MEDS ORDERED: Apixaban 5 MG **PTOM PO SCH (09:00)
[2020-05-02] MEDS ORDERED: HYDROCHLOROTHIAZIDE PO SCH (09:00)
[2020-05-02] MEDS ORDERED: Potassium Chloride 20 MEQ **PTOM PO SCH (09:00)
[2020-05-02] MEDS ORDERED: amLODIPine 10 MG Tab PO SCH (09:00)
--- NOTE | 2020-05-02 10:06 | CR ---
Knee 3V Lt, CLINICAL HISTORY: Pain FINDINGS: No acute fracture or dislocation is noted. There are no osseous lesions. Patient is severe joint space narrowing in the medial compartment. There is periarticular and patellar spurring. There is prominence intercondylar eminence. Impression: Severe osteoarthritic change Lt, Hip Min 2V or 3V Lt CLINICAL HISTORY: Pain FINDINGS: There is osteoarthritic change with joint space narrowing. There is moderate spurring at the acetabulum. No fracture seen IMPRESSION: Moderate osteoarthritic change with probable femoral acetabular impingement of the pincher-type
[2020-05-02 10:44] VITALS: BP 127/61; PULSE 62
[2020-05-02] MEDS ORDERED: ATENOLOL 100 MG PO SCH (13:00)
[2020-05-02] MEDS ORDERED: VESICARE 10 MG PO SCH (13:00)
[2020-05-02] MEDS ORDERED: DOXAZOSIN 8 MG PO SCH (13:00)
--- NOTE | 2020-05-02 13:47 | PCM.DCSUM1 ---
Discharge Summary - Hospital Course Brief History: Mr. Gordon is a 70-year-old gentleman who was admitted to the hospital through the emergency department observation status for management of severe progressive weakness secondary to multiple sclerosis. - Discharge Data Discharge Date: 05/02/20 Discharge Disposition: DC/Tfer to SNF 03 Condition: Fair - Referral to Home Health Primary Care Physician: Spenser New MD - Discharge Diagnosis/Problem(s) (1) Hip arthritis SNOMED Code(s): 53688610 ICD Code: M16.10 - UNILATERAL PRIMARY OSTEOARTHRITIS, UNSPECIFIED HIP Status: Acute Current Visit: Yes (2) Multiple sclerosis SNOMED Code(s): 56884490 ICD Code: G35 - MULTIPLE SCLEROSIS Status: Acute Priority: High Current Visit: Yes (3) Generalized weakness SNOMED Code(s): 08238930 ICD Code: R53.1 - WEAKNESS Status: Acute Current Visit: No (4) Recurrent falls SNOMED Code(s): 129779263 ICD Code: R29.6 - REPEATED FALLS Status: Chronic Current Visit: No (5) Urinary incontinence SNOMED Code(s): 930840928 ICD Code: R32 - UNSPECIFIED URINARY INCONTINENCE Status: Acute Current Visit: Yes - Patient Summary/Data Consults: Consultations 05/02/20 03:49 Consult to Case Management/Human Factors Specialist [CONS] Routine Comment: Physician Instructions: acute rehab residential placement Service(s) to be Consulted: Case Management Reason for Consult: Prison Placement Case Management Specialty/Human Factors Specialist: Case Management Date Notified: 05/02/20 OT Evaluation and Treatment [CONS] Routine Please Evaluate and Treat. OT Reason for Consult: Strengthening Special Instructions: [place] since 2014 This query below is only for informational purposes and is not editable. PT Evaluation and Treatment [CONS] Routine Please Evaluate and Treat. PT Reason for Consult: Strengthening Special Instructions: MS since 2014 This query below is only for informational purposes and is not editable. Hospital Course: Mr. Gordon a 70-year-old gentleman who was admitted to observation status through the emergency department secondary to recent falls at home. He has known and longstanding multiple sclerosis and has become progressively more weak to the point that he is unable to bear weight. He and his have been in the process of trying to arrange residential placement for restorative physical therapy and Occupational Therapy. He fell last night and his was unable to get him up so he was brought into the emergency department. She was unable to take him home as she is no longer able to care for him because of the recurrent falls. He was evaluated in the emergency department and there was no evidence of significant infection or underlying metabolic abnormality. He was admitted to the hospital for supportive care until residential placement could be accomplished. He was noted to have ongoing urinary incontinence. He does have a artificial urinary sphincter that has not been functioning. There was no evidence of underlying urinary tract infection. [facility] in [place] has accepted him for care and he will be transferred there this afternoon. Activity will be as tolerated and he will resume his usual diet. - Patient Instructions Diet: Usual Diet as Tolerated Activity: As Tolerated Other/Special Instructions: Daily physical therapy and occupational therapy while at the residential. - Discharge Plan *PRESCRIPTION DRUG MONITORING PROGRAM REVIEWED*: Not Applicable *COPY OF PRESCRIPTION DRUG MONITORING REPORT IN PATIENT VIOLETA: Not Applicable Home Medications: Home Meds Doxazosin [Cardura] 8 mg PO DAILY 09/19/14 [History] Triamterene/Hydrochlorothiazid [Triamterene-HCTZ 37.5-25 MG] 25 - 37.5 mg PO DAILY 09/19/14 [History] amLODIPine Besylate/Benazepril [Amlodipine-Benazepril 10-20 MG] 10 - 20 mg PO DAILY 09/19/14 [History] Ibuprofen 800 mg PO ASDIRECTED PRN 10/02/14 [History] Solifenacin Succinate [Vesicare] 10 mg PO DAILY 05/29/18 [History] Apixaban [Eliquis] 5 mg PO BID 05/02/20 [History] Potassium Chloride [Klor-Con M20] 20 meq PO DAILY 05/02/20 [History] atenoloL [Atenolol] 100 mg PO DAILY 05/02/20 [History] diazePAM [Valium] 5 mg PO Q8H PRN 05/02/20 [History] Patient Handouts: Osteoarthritis Referrals: Spenser New MD [Primary Care Provider] - - Discharge Summary/Plan Comment DC Time >30 min.: No - Patient Data Vitals - Most Recent: Last Vital Signs Temp 96.4 F L 05/02/20 10:42 Pulse 62 05/02/20 10:42 Resp 16 05/02/20 10:42 BP 127/61 05/02/20 10:42 Pulse Ox 91 L 05/02/20 10:42 Weight - Most Recent: 245 lb I&O - Last 24 hours: Intake & Output 05/01/20 05/02/20 05/02/20 22:59 06:59 14:59 Intake Total 240 Output Total 180 Balance 60 Lab Results - Last 24 hrs: Laboratory Results - last 24 hr 05/02/20 05/02/20 05/02/20 Range/Units 03:49 04:10 04:10 WBC 9.7 (4.5-11.0) K/uL RBC 4.43 (4.30-5.90) M/uL Hgb 13.1 (12.0-15.0) g/dL Hct 40.6 (40.0-54.0) % MCV 92 (80-98) fL MCH 30 (27-31) pg MCHC 32 (32-36) % Plt Count 208 (150-400) K/uL Neut % (Auto) 64 (36-66) % Lymph % (Auto) 24 (24-44) % Wells % (Auto) 9 H (2-6) % Eos % (Auto) 3 (2-4) % Baso % (Auto) 0 (0-1) % PT 11.2 (9.5-12.0) sec INR 1.04 (0.80-1.20) Sodium (140-148) mmol/L Potassium (3.6-5.2) mmol/L Chloride (100-108) mmol/L Carbon Dioxide (21-32) mmol/L Anion Gap (5.0-14.0) mmol/L BUN (7-18) mg/dL Creatinine (0.8-1.3) mg/dL Est Cr Clr Drug Dosing mL/min Estimated GFR (MDRD) (>60) Glucose (74-106) mg/dL Calcium (8.5-10.1) mg/dL Magnesium (1.8-2.4) mg/dL Total Bilirubin (0.2-1.0) mg/dL AST (15-37) U/L ALT (12-78) U/L Alkaline Phosphatase (46-116) U/L Total Protein (6.4-8.2) g/dL Albumin (3.4-5.0) g/dL Globulin (2.3-3.5) g/dL Albumin/Globulin Ratio (1.2-2.2) Amylase (25-115) U/L Urine Color Yellow (YELLOW) Urine Appearance Slightly cloudy A (CLEAR) Urine pH 5.5 (5.0-8.0) Ur Specific [place] >= 1.030 (1.008-1.030) Urine Protein Negative (NEGATIVE) mg/dL Urine Glucose (UA) Negative (NEGATIVE) mg/dL Urine Ketones Negative (NEGATIVE) mg/dL Urine Occult Blood Moderate H (NEGATIVE) Urine Nitrite Negative (NEGATIVE) Urine Bilirubin Negative (NEGATIVE) Urine Urobilinogen 0.2 (0.2-1.0) EU/dL Ur Leukocyte Esterase Negative (NEGATIVE) Urine RBC 20-30 H (0-5) Urine WBC 0-5 (0-5) Ur Epithelial Cells Not seen Amorphous Sediment Not seen Urine Bacteria Not seen Urine Mucus Moderate SARS Virus RNA (PCR) (NEGATIVE) 05/02/20 05/02/20 Range/Units 04:10 12:30 WBC (4.5-11.0) K/uL RBC (4.30-5.90) M/uL Hgb (12.0-15.0) g/dL Hct (40.0-54.0) % MCV (80-98) fL MCH (27-31) pg MCHC (32-36) % Plt Count (150-400) K/uL Neut % (Auto) (36-66) % Lymph % (Auto) (24-44) % Wells % (Auto) (2-6) % Eos % (Auto) (2-4) % Baso % (Auto) (0-1) % PT (9.5-12.0) sec INR (0.80-1.20) Sodium 149 H (140-148) mmol/L Potassium 3.4 L (3.6-5.2) mmol/L Chloride 109 H (100-108) mmol/L Carbon Dioxide 34 H (21-32) mmol/L Anion Gap 9.4 (5.0-14.0) mmol/L BUN 26 H D (7-18) mg/dL Creatinine 1.2 (0.8-1.3) mg/dL Est Cr Clr Drug Dosing 59.14 mL/min Estimated GFR (MDRD) 60 (>60) Glucose 102 (74-106) mg/dL Calcium 8.6 (8.5-10.1) mg/dL Magnesium 2.2 (1.8-2.4) mg/dL Total Bilirubin 0.4 D (0.2-1.0) mg/dL AST 15 (15-37) U/L ALT 32 D (12-78) U/L Alkaline Phosphatase 70 (46-116) U/L Total Protein 6.1 L (6.4-8.2) g/dL Albumin 3.4 (3.4-5.0) g/dL Globulin 2.7 (2.3-3.5) g/dL Albumin/Globulin Ratio 1.3 (1.2-2.2) Amylase 35 (25-115) U/L Urine Color (YELLOW) Urine Appearance (CLEAR) Urine pH (5.0-8.0) Ur Specific [place] (1.008-1.030) Urine Protein (NEGATIVE) mg/dL Urine Glucose (UA) (NEGATIVE) mg/dL Urine Ketones (NEGATIVE) mg/dL Urine Occult Blood (NEGATIVE) Urine Nitrite (NEGATIVE) Urine Bilirubin (NEGATIVE) Urine Urobilinogen (0.2-1.0) EU/dL Ur Leukocyte Esterase (NEGATIVE) Urine RBC (0-5) Urine WBC (0-5) Ur Epithelial Cells Amorphous Sediment Urine Bacteria Urine Mucus SARS Virus RNA (PCR) Negative (NEGATIVE) Med Orders - Current: Current Medications Albuterol (Proventil Neb Soln) 2.5 mg NEB Q4H PRN PRN Reason: Shortness Of Breath/wheezing Amlodipine Besylate (Norvasc) 10 mg PO DAILY SHILO Apixaban (Eliquis) 5 mg PO BID SHILO Benazepril HCl (Lotensin) 20 mg PO DAILY SHILO Diazepam (Valium.) 5 mg PO Q8H PRN PRN Reason: Muscle Spasm Docusate Sodium (Colace) 100 mg PO BID PRN PRN Reason: Constipation Ibuprofen (Motrin) 800 mg PO Q8H PRN PRN Reason: Pain Lorazepam (Ativan) 1 mg IV Q6H PRN PRN Reason: Nausea/Vomiting Magnesium Hydroxide (Milk Of Magnesia) 30 ml PO Q12H PRN PRN Reason: Constipation Morphine Sulfate (Morphine) 2 mg IVPUSH Q2H PRN PRN Reason: Pain (severe 7-10) Ondansetron HCl (Zofran Odt) 4 mg PO Q6H PRN PRN Reason: Nausea able to take PO Ondansetron HCl (Zofran) 4 mg IV Q4H PRN PRN Reason: Nausea/Vomiting Oxycodone/Acetaminophen (Percocet 325-5 Mg) 2 tab PO Q4H PRN PRN Reason: Pain (moderate 4-6) Vesicare 10mg Ptom () 0 each PO DAILY SHILO Atenolol 100mg (Ptom) 0 each PO DAILY SHILO Doxazosin 8mg Ptom () 0 each PO DAILY SHILO Potassium Chloride (Klor-Con M20) 20 meq PO DAILY SHILO Sodium Chloride (Saline Flush) 10 ml FLUSH ASDIRECTED PRN PRN Reason: Keep Vein Open Triamterene/HCTZ (Maxzide 25-37.5 Mg) 1 each PO DAILY SHILO Discontinued Medications Oxycodone/Acetaminophen (Percocet 325-5 Mg) 1 tab PO ONETIME STA Stop: 05/02/20 00:20 Last Admin: 05/02/20 00:38 Dose: 1 tab Documented by: - Exam General: Reports: Alert, Oriented, Cooperative, No Acute Distress Lungs: Reports: Clear to Auscultation, Normal Respiratory Effort Cardiovascular: Reports: Regular Rate, Regular Rhythm, No Murmurs GI/Abdominal Exam: Soft, Non-Tender, No Organomegaly, No Distention
== END 2020-05-02 15:15 ==
LOC: JP.ED 00:10 → JP.MS 02:55
PROVIDERS: ADMIT Hospitalist; ATTEND Hospitalist
DX: M16.12 Unilateral primary osteoarthritis, left hip (principal); M17.12 Unilateral primary osteoarthritis, left knee; G35 Multiple sclerosis; R53.1 Weakness; R29.6 Repeated falls; R32 Unspecified urinary incontinence; I10 Essential (primary) hypertension; Z20.828 Contact with and (suspected) exposure to other viral communicable diseases; Z88.0 Allergy status to penicillin; Z79.899 Other long term (current) drug therapy; Z86.718 Personal history of other venous thrombosis and embolism
CPT/HCPCS: 36415; 73502; 73562; 80053; 81001; 82150; 83735; 85025; 85610; A9270; G0378; U0002

== ENCOUNTER 2020-11-27 11:52 | Day surgery (SDC) | payer MEDICARE, OTHER ==
[~2020-11-27 11:52] MED LIST: Midazolam 1 MG/ML 2 ML SDV ONE; Propofol 200 MG/20 ML SDV ONE; fentaNYL 100 MCG/2 ML SDV ONE; fentaNYL 250 MCG/5 ML SDV ONE
[2020-11-27] MEDS ORDERED: Dextrose 5%-Lactated Ringers 1,000 ML IV SCH (12:30)
[2020-11-27] MEDS: Bupivacaine 0.5% 50 ML MDV ONE ×2 (12:33→13:15)
[2020-11-27] MEDS: Lidocaine 1% with EPINEPHrine 1:100,000 50 ML MDV ONE ×2 (12:33→13:15)
[2020-11-27] MEDS ORDERED: Meropenem 500 MG in Sodium Chloride 0.9% 50 ML IV ONE (13:00)
[2020-11-27 15:17] VITALS: PULSE 54
[2020-11-27 15:25] VITALS: BP 121/71
--- NOTE | 2020-12-01 15:12 | OR ---
DATE OF PROCEDURE: 11/27/2020 SURGEON: David Reed MD PREOPERATIVE DIAGNOSIS: Urinary retention secondary to advanced multiple sclerosis and nonfunctioning artificial sphincter. POSTOPERATIVE DIAGNOSIS: Urinary retention secondary to advanced multiple sclerosis and nonfunctioning artificial sphincter. OPERATIVE PROCEDURE: Suprapubic catheter insertion ([id number]). ANESTHESIA: Local plus IV sedation. 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 The patient has developed marked urinary retention with a large palpable bladder in the suprapubic area. The plan is to proceed with a suprapubic catheter insertion. Potential risks of the procedure were reviewed with the patient's , and she wishes to proceed. DETAILS OF PROCEDURE: The patient was taken to the operating room, placed in a supine position. IV sedation was administered, after which the abdomen was prepped and draped. The urinary bladder was then visualized by ultrasound and the skin overlying this as well as the underlying abdominal wall soft tissues were anesthetized with 1% lidocaine mixed with Marcaine. A small transverse incision in the suprapubic midline was then made and the bladder entered with a needle. Some of the urine was aspirated and sent for culture through the needle and a guidewire was then placed, and over this, then a 16-Occitan introducer and peel-away catheter were positioned, all under ultrasound guidance. After removal of the introducer, a 12-Occitan Maher catheter was inserted into the bladder and inflated with 10 mL of saline. The peel-away catheter was then removed leaving the suprapubic catheter in place, which was then pulled up snugly against the urinary wall to minimize postoperative bleeding and sutured to skin with some 2-0 nylon stitch. Dressing was applied. There were no evident complications. A large amount of urine was evacuated during the course of the procedure, and the patient tolerated the procedure well. David Reed MD /[id number]
== END 2020-11-27 15:45 | disposition home or self-care (01) ==
LOC: JP.SDS 11:52
PROVIDERS: ATTEND Surgery
DX: T83.111A Breakdown (mechanical) of implanted urinary sphincter, initial encounter (principal); R33.9 Retention of urine, unspecified; G35 Multiple sclerosis; I10 Essential (primary) hypertension; I25.10 Atherosclerotic heart disease of native coronary artery without angina pectoris; E11.9 Type 2 diabetes mellitus without complications; Z01.812 Encounter for preprocedural laboratory examination; Z20.822 Contact with and (suspected) exposure to COVID-19; Z88.0 Allergy status to penicillin
CPT/HCPCS: 76998; 87086; C2627; J2185; J2250; J2704; J3010; J3490; J7050; J7121; U0002